=== PATIENT | male | born 1930 | race Caucasian/White ===

== ENCOUNTER 2018-07-19 09:28 | Emergency (ER) | payer OTHER ==
[~2018-07-19] VITALS: Ht 165.1 cm; Wt 83.9 kg
[2018-07-19 09:34] VITALS: Ht 165.1 cm; Wt 83.9 kg
[2018-07-19 10:54] LABS: BASOPHIL % 0.5 % (0-2); PLATELET COUNT 255 x10^3mcL (130-400); RED CELL DISTRIBUTION WIDTH 12.9 % (11.5-14.5)
[2018-07-19 11:15] LABS: CALCIUM 8.8 mg/dL (8.5-10.1); CARBON DIOXIDE 27.8 mmol/L (21-32); CHLORIDE SERUM 105 mmol/L (98-107); CREATININE SERUM 0.9 mg/dL (0.7-1.3); GLUCOSE SERUM 115 mg/dL (74-106); POTASSIUM SERUM 4.1 mmol/L (3.5-5.1); SODIUM SERUM 140 mmol/L (136-145)
[2018-07-19 11:20] LABS: ALBUMIN 3.8 g/dL (3.4-5.0); ALKALINE PHOSPHATASE 80 U/L (46-116); ALT/SGPT 25 U/L (16-63); AST/SGOT 17 U/L (15-37); BILIRUBIN TOTAL 0.2 mg/dL (0.20-1.00); TOTAL PROTEIN, SERUM 7.7 g/dL (6.4-8.2)
[2018-07-19 12:12] VITALS: BP 152/93
== END 2018-07-19 12:12 | disposition home or self-care (01) ==
LOC: ED 09:28
PROVIDERS: Emergency Medicine
DX: F41.9 Anxiety disorder, unspecified (principal); E78.00 Pure hypercholesterolemia, unspecified
CPT/HCPCS: 36415; Q0092

== ENCOUNTER 2018-07-22 16:04 | Emergency (ER) | payer OTHER ==
[~2018-07-22] VITALS: Ht 167.6 cm; Wt 84.4 kg
[2018-07-22 16:07] VITALS: BP 172/94; Ht 167.6 cm; Wt 84.4 kg
== END 2018-07-22 16:48 | disposition home or self-care (01) ==
LOC: ED 16:04
DX: B37.49 Other urogenital candidiasis (principal); I10 Essential (primary) hypertension; E78.00 Pure hypercholesterolemia, unspecified

== ENCOUNTER 2018-07-27 16:41 | Emergency (ER) | payer OTHER ==
[~2018-07-27] VITALS: Ht 167.6 cm; Wt 83.2 kg
[2018-07-27 16:59] VITALS: Ht 167.6 cm; Wt 83.2 kg
[2018-07-27 19:00] VITALS: BP 144/86
== END 2018-07-27 19:00 | disposition home or self-care (01) ==
LOC: ED 16:41
DX: G62.9 Polyneuropathy, unspecified (principal); B37.89 Other sites of candidiasis; I10 Essential (primary) hypertension; E78.00 Pure hypercholesterolemia, unspecified

== ENCOUNTER 2019-03-03 16:22 | Emergency (ER) | payer OTHER ==
[~2019-03-03] VITALS: Ht 167.6 cm; Wt 83.0 kg
[2019-03-03 16:42] VITALS: Ht 167.6 cm; Wt 83.0 kg
[2019-03-03] MEDS ORDERED: BAYER ASPIRIN R81 MG (18:04)
[2019-03-03] MEDS ORDERED: FOSAMAX70 M1 (18:04)
[2019-03-03] MEDS ORDERED: HYDROXYZINE HYD25 MG (18:05)
[2019-03-03] MEDS ORDERED: AVAPRO75 MG (18:05)
[2019-03-03] MEDS ORDERED: FLO4 (18:05)
[2019-03-03] MEDS ORDERED: CLOTRIMAZOLE TR10 M1 (18:05)
[2019-03-03] MEDS ORDERED: METOPROLOL SUCC50 M2 (18:05)
[2019-03-03 19:24] LABS: microscopic required? NO
[2019-03-03 19:28] LABS: BASOPHIL % 0.7 % (0-2); PLATELET COUNT 242 x10^3mcL (130-400); RED CELL DISTRIBUTION WIDTH 13.8 % (11.5-14.5)
[2019-03-03 19:30] LABS: UA SPECIFIC GRAVITY 1.025 (1.005-1.035); urine erythrocyte NEGATIVE (NEGATIVE)
[2019-03-03 19:33] LABS: CALCIUM 8.6 mg/dL (8.5-10.1); CARBON DIOXIDE 30.4 mmol/L (21-32); CHLORIDE SERUM 107 mmol/L (98-107); GLUCOSE SERUM 98 mg/dL (74-106); POTASSIUM SERUM 4.2 mmol/L (3.5-5.1); SODIUM SERUM 142 mmol/L (136-145)
[2019-03-03 19:46] LABS: ALBUMIN 3.6 g/dL (3.4-5.0); ALKALINE PHOSPHATASE 86 U/L (46-116); ALT/SGPT 15 U/L (16-63); AST/SGOT 14 U/L (15-37); BILIRUBIN TOTAL 0.28 mg/dL (0.20-1.00); TOTAL PROTEIN, SERUM 7.1 g/dL (6.4-8.2)
[2019-03-03 21:42] VITALS: BP 168/72
== END 2019-03-03 21:43 | disposition home or self-care (01) ==
LOC: ED 16:22
PROVIDERS: Emergency Medicine
DX: E02 Subclinical iodine-deficiency hypothyroidism (principal); I10 Essential (primary) hypertension; E78.00 Pure hypercholesterolemia, unspecified
CPT/HCPCS: 84439; J7030

== ENCOUNTER 2019-08-09 09:57 | Emergency (ER) | payer OTHER ==
[~2019-08-09] VITALS: Ht 165.1 cm; Wt 83.9 kg
[~2019-08-09 09:57] MED LIST: AVAPRO75 MG; BAYER ASPIRIN R81 MG; CLOTRIMAZOLE TR10 M1; FLO4; FOSAMAX70 M1; HYDROXYZINE HYD25 MG; METOPROLOL SUCC50 M2
[2019-08-09 10:03] VITALS: Ht 165.1 cm; Wt 83.9 kg
[2019-08-09 11:20] LABS: BASOPHIL % 0.7 % (0-2); PLATELET COUNT 222 x10^3mcL (130-400); RED CELL DISTRIBUTION WIDTH 13.3 % (11.5-14.5)
[2019-08-09 12:10] LABS: CALCIUM 8.6 mg/dL (8.5-10.1); CARBON DIOXIDE 31.5 mmol/L (21-32); CHLORIDE SERUM 108 mmol/L (98-107); CREATININE SERUM 1.1 mg/dL (0.7-1.3); GLUCOSE SERUM 113 mg/dL (74-106); POTASSIUM SERUM 5.2 mmol/L (3.5-5.1); SODIUM SERUM 143 mmol/L (136-145)
[2019-08-09 12:14] LABS: ALBUMIN 3.6 g/dL (3.4-5.0); ALKALINE PHOSPHATASE 70 U/L (46-116); ALT/SGPT 22 U/L (16-63); AST/SGOT 16 U/L (15-37); BILIRUBIN TOTAL 0.3 mg/dL (0.20-1.00); LIPASE 193 IU/L (73-393); TOTAL PROTEIN, SERUM 7.1 g/dL (6.4-8.2)
[2019-08-09 16:18] VITALS: BP 137/58
== END 2019-08-09 16:18 | disposition home or self-care (01) ==
LOC: ED 09:57
PROVIDERS: Emergency Medicine
DX: R07.89 Other chest pain (principal); R53.1 Weakness; I10 Essential (primary) hypertension; E78.00 Pure hypercholesterolemia, unspecified
CPT/HCPCS: 36415; 83880; Q0092; Q9967